=== PATIENT | female | born 1970 | race Caucasian/White ===

== ENCOUNTER 2017-05-02 16:34 | Inpatient (IN) | payer MEDICAID ==
[~2017-05-02] VITALS: Ht 165.1 cm; Wt 83.0 kg
[2017-05-02 16:35] VITALS: BP_SYST 161
[2017-05-02] MEDS ORDERED: NACL 0.9% 1,000 ML IV ONE (16:55)
[2017-05-02] MEDS ORDERED: ONDANSETRON HCL 4 MG/2 ML VIAL IVP ONE (17:00)
[2017-05-02] MEDS ORDERED: KETOROLAC TROMETHAMINE 30 MG VIAL IVP ONE (17:00)
[2017-05-02 17:34] LABS: BASOPHILS % (AUTO) 0.6 % (0.0-2.0); EOSINOPHILS # (AUTO) 0.2 K/uL (0.0-0.4); EOSINOPHILS % (AUTO) 3.1 % (0.0-4.0); HEMATOCRIT 41.1 % (36-48); HEMOGLOBIN 13.7 g/dL (12.0-16.0); LYMPHOCYTES # (AUTO) 1.3 K/uL (1.0-5.5); LYMPHOCYTES % (AUTO) 21.1 % (20.5-51.5); MEAN CORPUSCULAR HEMOGLOBIN 32 pg (27-31); MEAN CORPUSCULAR HGB CONC 34 % (32-36); MEAN CORPUSCULAR VOLUME 94 fL (79.0-98.0); MONOCYTES # (AUTO) 0.3 K/uL (0.0-1.0); MONOCYTES % (AUTO) 5.7 % (1.7-9.3); NEUTROPHILS # (AUTO) 4.3 K/uL (1.8-7.7); NEUTROPHILS % (AUTO) 69.5 % (40.0-70.0); PLATELET COUNT (AUTO) 226 K/uL (130-430); RED BLOOD CELL COUNT(AUTO) 4.35 MIL/uL (4.2-6.2); RED CELL DISTRIBUTION WIDTH 11.6 % (9.0-15.0); WHITE BLOOD COUNT (AUTO) 6.1 K/uL (4.8-10.8)
[2017-05-02 17:41] LABS: CALCIUM 9.6 mg/dL (8.4-11.0); CREATININE 0.63 mg/dL (0.55-1.30); POTASSIUM 3.6 mmol/L (3.5-5.1)
[2017-05-02 17:45] LABS: ALBUMIN 4.3 g/dL (3.4-4.8); TOTAL BILIRUBIN 0.3 mg/dL (0.0-1.0)
[2017-05-02] MEDS ORDERED: DIPHENHYDRAMINE INJ 50 MG/ML VIAL IVP ONE (18:00)
[2017-05-02] MEDS ORDERED: MORPHINE 2 MG/ML INJ. SYRINGE IVP ONE (18:00)
[2017-05-02] MEDS ORDERED: PROCHLORPERAZINE EDISYLATE 10 MG/2 ML VIAL IVP ONE (18:00)
[2017-05-02] MEDS ORDERED: PANTOPRAZOLE SODIUM 40 MG/VIAL (PROTONIX) IVP ONE (18:15)
[2017-05-02] MEDS ORDERED: IBUP-1479 PO (18:41)
[2017-05-02] MEDS ORDERED: FAMO20TA98 PO (18:41)
[2017-05-02] MEDS ORDERED: ESOM40CA PO (18:41)
[2017-05-02] MEDS ORDERED: ACETAMINOPHEN 650 MG SUPP.RECT RC PRN (21:15)
[2017-05-02] MEDS ORDERED: ONDANSETRON HCL 4 MG/2 ML VIAL IVP PRN (21:15)
[2017-05-02] MEDS ORDERED: LORazepam 2 MG/ML VIAL IVP PRN (21:15)
[2017-05-02 22:25] LABS: BILIRUBIN,URINE NEGATIVE (NEGATIVE); CLARITY/URINE CLEAR (CLEAR); COLOR,URINE YELLOW (YELLOW); GLUCOSE,URINE NEGATIVE (NEGATIVE); KETONES,URINE 2+ (NEGATIVE); LEUKOCYTE ESTERASE ,URINE NEGATIVE (NEGATIVE); NITRITE, URINE NEGATIVE (NEGATIVE); PROTEIN URINE NEGATIVE (NEGATIVE); UROBILINOGEN,URINE 0.2 (0.2-1.0)
[2017-05-02] MEDS: KCL 20 mEq in D5/0.45NS 1000mL 1,000 ML IV SCH (22:33)
[2017-05-02 22:35] LABS: BLOOD, URINE TRACE (NEGATIVE)
[2017-05-02 22:41] LABS: HCG,QUAL RESULT NEGATIVE (NEGATIVE)
[2017-05-02] MEDS: MORPHINE 2 MG/ML INJ. SYRINGE IVP PRN (22:41)
[2017-05-02 22:50] LABS: BACTERIA,URINE FEW /HPF (None Seen); WBC,URINE 0-3 /HPF (0-3)
[2017-05-02 22:52] LABS: MUCUS,URINE 2+ /LPF (None Seen)
[2017-05-02 23:32] VITALS: BP_SYST 150
[2017-05-03 07:50] LABS: ALBUMIN 3.8 g/dL (3.4-4.8); BILIRUBIN,DIRECT 0.2 mg/dL (0.0-0.3); CALCIUM 9.1 mg/dL (8.4-11.0); CREATININE 0.65 mg/dL (0.55-1.30); FREE T4 (FREE THYROXINE) 0.7 ng/dL (0.6-1.6); POTASSIUM 4.2 mmol/L (3.5-5.1); TOTAL BILIRUBIN 0.5 mg/dL (0.0-1.0)
[2017-05-03 08:00] VITALS: BP_SYST 133
[2017-05-03] MEDS: MORPHINE 2 MG/ML INJ. SYRINGE IVP PRN ×2 (08:06→16:58)
[2017-05-03] MEDS: PANTOPRAZOLE SODIUM 40 MG/VIAL (PROTONIX) IVP SCH (08:06)
[2017-05-03] MEDS: KCL 20 mEq in D5/0.45NS 1000mL 1,000 ML IV SCH ×3 (08:07→22:08)
[2017-05-03 12:00] VITALS: BP_SYST 132
[2017-05-03 16:05] VITALS: BP_SYST 142
[2017-05-03 20:15] VITALS: BP_SYST 143
[2017-05-03 23:31] VITALS: BP_SYST 131
[2017-05-04] MEDS: MORPHINE 2 MG/ML INJ. SYRINGE IVP PRN ×2 (00:15→08:12)
[2017-05-04 07:00] LABS: ALBUMIN 3.4 g/dL (3.4-4.8); CALCIUM 9.1 mg/dL (8.4-11.0); CREATININE 0.57 mg/dL (0.55-1.30); POTASSIUM 3.9 mmol/L (3.5-5.1); TOTAL BILIRUBIN 0.8 mg/dL (0.0-1.0)
[2017-05-04 07:39] LABS: BASOPHILS % (AUTO) 0.3 % (0.0-2.0); EOSINOPHILS # (AUTO) 0.1 K/uL (0.0-0.4); HEMATOCRIT 37.4 % (36-48); HEMOGLOBIN 12.9 g/dL (12.0-16.0); LYMPHOCYTES # (AUTO) 1.1 K/uL (1.0-5.5); LYMPHOCYTES % (AUTO) 8.2 % (20.5-51.5); MEAN CORPUSCULAR HEMOGLOBIN 32 pg (27-31); MEAN CORPUSCULAR HGB CONC 35 % (32-36); MEAN CORPUSCULAR VOLUME 93 fL (79.0-98.0); MONOCYTES % (AUTO) 7.1 % (1.7-9.3); NEUTROPHILS # (AUTO) 11.3 K/uL (1.8-7.7); PLATELET COUNT (AUTO) 193 K/uL (130-430); RED BLOOD CELL COUNT(AUTO) 4.01 MIL/uL (4.2-6.2); RED CELL DISTRIBUTION WIDTH 11.9 % (9.0-15.0); WHITE BLOOD COUNT (AUTO) 13.5 K/uL (4.8-10.8)
[2017-05-04 08:00] VITALS: BP_SYST 130
[2017-05-04] MEDS: PANTOPRAZOLE SODIUM 40 MG/VIAL (PROTONIX) IVP SCH (08:14)
[2017-05-04 08:18] LABS: NEUTROPHILS % (AUTO) 83.4 % (40.0-70.0)
[2017-05-04] MEDS: metroNIDAZOLE 500 mg/NS 100 ML IV SCH ×3 (11:18→22:34)
[2017-05-04 12:00] VITALS: BP_SYST 132
[2017-05-04] MEDS: ACETAMINOPHEN 325 MG TABLET PO PRN (15:27)
[2017-05-04 16:00] VITALS: BP_SYST 135
[2017-05-04] MEDS: KCL 20 mEq in D5/0.45NS 1000mL 1,000 ML IV SCH ×2 (18:00→22:36)
[2017-05-04 19:40] VITALS: BP_SYST 114
[2017-05-04 23:55] VITALS: BP_SYST 110
[2017-05-05] MEDS: MORPHINE 2 MG/ML INJ. SYRINGE IVP PRN ×3 (01:57→20:44)
[2017-05-05] MEDS: metroNIDAZOLE 500 mg/NS 100 ML IV SCH ×3 (05:53→20:47)
[2017-05-05 06:37] LABS: CALCIUM 8.7 mg/dL (8.4-11.0); CREATININE 0.76 mg/dL (0.55-1.30); POTASSIUM 3.9 mmol/L (3.5-5.1)
[2017-05-05 06:46] LABS: ALBUMIN 2.9 g/dL (3.4-4.8); TOTAL BILIRUBIN 0.9 mg/dL (0.0-1.0)
[2017-05-05 07:20] LABS: BASOPHILS % (AUTO) 0.4 % (0.0-2.0); EOSINOPHILS # (AUTO) 0.3 K/uL (0.0-0.4); EOSINOPHILS % (AUTO) 3.4 % (0.0-4.0); HEMATOCRIT 36.7 % (36-48); HEMOGLOBIN 12.2 g/dL (12.0-16.0); LYMPHOCYTES # (AUTO) 1.3 K/uL (1.0-5.5); LYMPHOCYTES % (AUTO) 14.1 % (20.5-51.5); MEAN CORPUSCULAR HEMOGLOBIN 32 pg (27-31); MEAN CORPUSCULAR HGB CONC 33 % (32-36); MEAN CORPUSCULAR VOLUME 95 fL (79.0-98.0); MONOCYTES # (AUTO) 0.7 K/uL (0.0-1.0); MONOCYTES % (AUTO) 7.9 % (1.7-9.3); NEUTROPHILS # (AUTO) 6.8 K/uL (1.8-7.7); NEUTROPHILS % (AUTO) 74.2 % (40.0-70.0); PLATELET COUNT (AUTO) 176 K/uL (130-430); RED BLOOD CELL COUNT(AUTO) 3.86 MIL/uL (4.2-6.2); RED CELL DISTRIBUTION WIDTH 12.1 % (9.0-15.0); WHITE BLOOD COUNT (AUTO) 9.1 K/uL (4.8-10.8)
[2017-05-05 08:10] VITALS: BP_SYST 147
[2017-05-05] MEDS: PANTOPRAZOLE SODIUM 40 MG/VIAL (PROTONIX) IVP SCH (08:38)
[2017-05-05 11:10] LABS: INR 1.1 (0.8-1.2); PROTHROMBIN TIME 11.1 SECS (9.5-12.5)
[2017-05-05 12:27] VITALS: BP_SYST 133
[2017-05-05] MEDS: KCL 20 mEq in D5/0.45NS 1000mL 1,000 ML IV SCH (15:22)
[2017-05-05 16:48] VITALS: BP_SYST 139
[2017-05-05 20:34] VITALS: BP_SYST 138
[2017-05-05 23:42] VITALS: BP_SYST 126
[2017-05-06] MEDS: KCL 20 mEq in D5/0.45NS 1000mL 1,000 ML IV SCH (04:35)
[2017-05-06] MEDS: MORPHINE 2 MG/ML INJ. SYRINGE IVP PRN (04:41)
[2017-05-06] MEDS: metroNIDAZOLE 500 mg/NS 100 ML IV SCH ×3 (05:33→21:25)
[2017-05-06 06:46] LABS: BASOPHILS % (AUTO) 0.4 % (0.0-2.0); EOSINOPHILS # (AUTO) 0.3 K/uL (0.0-0.4); EOSINOPHILS % (AUTO) 2.9 % (0.0-4.0); HEMATOCRIT 36.8 % (36-48); HEMOGLOBIN 12.5 g/dL (12.0-16.0); LYMPHOCYTES % (AUTO) 10.7 % (20.5-51.5); MEAN CORPUSCULAR HEMOGLOBIN 32 pg (27-31); MEAN CORPUSCULAR HGB CONC 34 % (32-36); MEAN CORPUSCULAR VOLUME 94 fL (79.0-98.0); MONOCYTES # (AUTO) 0.6 K/uL (0.0-1.0); MONOCYTES % (AUTO) 7.1 % (1.7-9.3); NEUTROPHILS # (AUTO) 7.1 K/uL (1.8-7.7); NEUTROPHILS % (AUTO) 78.9 % (40.0-70.0); PLATELET COUNT (AUTO) 198 K/uL (130-430); RED BLOOD CELL COUNT(AUTO) 3.89 MIL/uL (4.2-6.2)
[2017-05-06 07:10] LABS: ALBUMIN 3.1 g/dL (3.4-4.8); CALCIUM 9.3 mg/dL (8.4-11.0); CREATININE 0.62 mg/dL (0.55-1.30); POTASSIUM 3.9 mmol/L (3.5-5.1); TOTAL BILIRUBIN 0.7 mg/dL (0.0-1.0)
[2017-05-06 08:37] VITALS: BP_SYST 133
[2017-05-06] MEDS: PANTOPRAZOLE SODIUM 40 MG/VIAL (PROTONIX) IVP SCH (08:48)
[2017-05-06 11:29] VITALS: BP_SYST 127
[2017-05-06 15:29] VITALS: BP_SYST 139
[2017-05-06] MEDS ORDERED: LR 1,000 ML IV SCH (17:52)
[2017-05-06] MEDS ORDERED: HYDROmorphone 1 MG INJ. 1 MG/ML AMPUL IVP PRN ×2 (18:00)
[2017-05-06] MEDS ORDERED: HYDROmorphone 2 MG/ML VIAL IVP PRN (18:00)
[2017-05-06] MEDS ORDERED: METOCLOPRAMIDE HCL 10 MG/2 ML VIAL IVP PRN (18:00)
[2017-05-06 18:02] VITALS: BP_SYST 139
[2017-05-06] MEDS ORDERED: METOCLOPRAMIDE HCL 10 MG/2 ML VIAL ONE (19:04)
[2017-05-06] MEDS ORDERED: HYDROmorphone 2 MG/ML VIAL ONE (19:04)
[2017-05-06 19:30] VITALS: BP_SYST 148
[2017-05-06 23:34] VITALS: BP_SYST 141
[2017-05-07] MEDS: MORPHINE 2 MG/ML INJ. SYRINGE IVP PRN ×3 (02:19→23:18)
[2017-05-07] MEDS: KCL 20 mEq in D5/0.45NS 1000mL 1,000 ML IV SCH ×3 (02:19→21:00)
[2017-05-07] MEDS: metroNIDAZOLE 500 mg/NS 100 ML IV SCH ×3 (05:52→21:36)
[2017-05-07 06:42] VITALS: BP_SYST 129
[2017-05-07 07:08] LABS: BASOPHILS % (AUTO) 0.3 % (0.0-2.0); EOSINOPHILS % (AUTO) 0.4 % (0.0-4.0); HEMATOCRIT 37.8 % (36-48); HEMOGLOBIN 12.6 g/dL (12.0-16.0); LYMPHOCYTES # (AUTO) 0.7 K/uL (1.0-5.5); MEAN CORPUSCULAR HEMOGLOBIN 32 pg (27-31); MEAN CORPUSCULAR HGB CONC 33 % (32-36); MEAN CORPUSCULAR VOLUME 96 fL (79.0-98.0); MONOCYTES # (AUTO) 0.8 K/uL (0.0-1.0); MONOCYTES % (AUTO) 6.9 % (1.7-9.3); NEUTROPHILS # (AUTO) 10.8 K/uL (1.8-7.7); NEUTROPHILS % (AUTO) 86.4 % (40.0-70.0); PLATELET COUNT (AUTO) 250 K/uL (130-430); RED BLOOD CELL COUNT(AUTO) 3.94 MIL/uL (4.2-6.2); RED CELL DISTRIBUTION WIDTH 11.7 % (9.0-15.0); WHITE BLOOD COUNT (AUTO) 12.3 K/uL (4.8-10.8)
[2017-05-07 07:35] LABS: ALBUMIN 3.2 g/dL (3.4-4.8); CALCIUM 9.2 mg/dL (8.4-11.0); CREATININE 0.65 mg/dL (0.55-1.30); POTASSIUM 3.8 mmol/L (3.5-5.1); TOTAL BILIRUBIN 0.6 mg/dL (0.0-1.0)
[2017-05-07 07:48] VITALS: BP_SYST 131
[2017-05-07] MEDS: PANTOPRAZOLE SODIUM 40 MG/VIAL (PROTONIX) IVP SCH (08:11)
[2017-05-07 11:27] VITALS: BP_SYST 152
[2017-05-07 15:28] VITALS: BP_SYST 157
[2017-05-07] MEDS: ACETAMINOPHEN 325 MG TABLET PO PRN (18:25)
[2017-05-07 20:20] VITALS: BP_SYST 120
[2017-05-07 23:56] VITALS: BP_SYST 116
[2017-05-08] MEDS: KCL 20 mEq in D5/0.45NS 1000mL 1,000 ML IV SCH (03:55)
[2017-05-08 04:15] VITALS: BP_SYST 123
[2017-05-08] MEDS: metroNIDAZOLE 500 mg/NS 100 ML IV SCH ×2 (05:59→13:17)
[2017-05-08] MEDS: MORPHINE 2 MG/ML INJ. SYRINGE IVP PRN (06:03)
[2017-05-08 07:16] LABS: BASOPHILS % (AUTO) 0.3 % (0.0-2.0); EOSINOPHILS # (AUTO) 0.3 K/uL (0.0-0.4); EOSINOPHILS % (AUTO) 3.7 % (0.0-4.0); HEMATOCRIT 31.7 % (36-48); HEMOGLOBIN 11.1 g/dL (12.0-16.0); LYMPHOCYTES % (AUTO) 14.1 % (20.5-51.5); MEAN CORPUSCULAR HEMOGLOBIN 33 pg (27-31); MEAN CORPUSCULAR HGB CONC 35 % (32-36); MEAN CORPUSCULAR VOLUME 94 fL (79.0-98.0); MONOCYTES # (AUTO) 0.6 K/uL (0.0-1.0); MONOCYTES % (AUTO) 8.1 % (1.7-9.3); NEUTROPHILS # (AUTO) 5.4 K/uL (1.8-7.7); NEUTROPHILS % (AUTO) 73.8 % (40.0-70.0); PLATELET COUNT (AUTO) 186 K/uL (130-430); RED BLOOD CELL COUNT(AUTO) 3.37 MIL/uL (4.2-6.2); RED CELL DISTRIBUTION WIDTH 11.9 % (9.0-15.0); WHITE BLOOD COUNT (AUTO) 7.4 K/uL (4.8-10.8)
[2017-05-08 08:05] LABS: ALBUMIN 2.7 g/dL (3.4-4.8); CALCIUM 9.1 mg/dL (8.4-11.0); CREATININE 0.71 mg/dL (0.55-1.30); POTASSIUM 3.5 mmol/L (3.5-5.1); TOTAL BILIRUBIN 0.3 mg/dL (0.0-1.0)
[2017-05-08] MEDS: PANTOPRAZOLE SODIUM 40 MG/VIAL (PROTONIX) IVP SCH (08:17)
[2017-05-08 08:19] VITALS: BP_SYST 112
[2017-05-08] MEDS ORDERED: BISACODYL 10 MG/SUPPOSITORY RC ONE (09:15)
[2017-05-08 12:40] VITALS: BP_SYST 139
[2017-05-08 14:45] VITALS: BP_SYST 139
[2017-05-08] MEDS ORDERED: AMOX-423 PO (15:28)
== END 2017-05-08 16:45 | disposition home or self-care (01) | DRG 263 ==
LOC: SED 16:34 → STU 18:46 → SMU 05-03 11:45
PROVIDERS: ADMIT Internal Medicine; ATTEND Internal Medicine
PROC: 0FT44ZZ Resection of Gallbladder, Percutaneous Endoscopic Approach (ICD-10-PCS; principal; 2017-05-06 15:30)
DX: K80.00 Calculus of gallbladder with acute cholecystitis without obstruction (principal); E66.01 Morbid (severe) obesity due to excess calories; K21.9 Gastro-esophageal reflux disease without esophagitis; Z68.30 Body mass index [BMI] 30.0-30.9, adult; Z79.899 Other long term (current) drug therapy; K82.8 Other specified diseases of gallbladder
CPT/HCPCS: 36415; 71045; 76700-TC; 78226; 80048; 80053; 80076; 81000-TC; 82150-TC; 83690-TC; 83735-TC; 84439; 84702-TC; 84703; 85025; 85610-TC; 88304; 93005; 96361; 96374; 96375; 97116-GP; 97530-GP; 99285; A9537; C1727; C9113; J0780; J1170; J1200; J1885; J1956; J2270; J2405; J2765; J3490; J7030; J7042; J7120